=== PATIENT | male | born 1950 | race Two or more races ===

== ENCOUNTER 2017-07-10 06:31 | Day surgery (SDC) | payer MEDICARE, BC ==
--- NOTE | 2017-07-06 11:40 | Pre-Procedure Note/Attestation ---
Pre-Procedure Note/Attestation Complete Prior to Procedure Planned Procedure: left Procedure Narrative: 1. CATARACT EXTRACTION WITH PHACO AND PC IOL IMPLANTATION,LEFT EYE. Indications for Procedure Pre-Operative Diagnosis: 1. CATARACT , LEFT EYE. Attestation I attest that I discussed the nature of the procedure; its benefits; risks and complications; and alternatives (and the risks and benefits of such alternatives ), prior to the procedure, with the patient (or the patient's legal associate sales representative). I attest that, if there was a reasonable possibility of needing a blood transfusion, the patient (or the patient's legal associate sales representative) was given the [facility] standardized written summary, pursuant to the Aaron Martin Blood Safety Act ([place] Health and Safety Code # 1645, as amended). I attest that I re-evaluated the patient just prior to the surgery and that there has been no change in the patient's H&P, except as documented below: SONYA DAY Jul 06, 2017 11:40
[~2017-07-10] VITALS: Ht 175.3 cm; Wt 90.7 kg
[2017-07-10] VITALS (10 sets, daily range): BP systolic 118–163; BP diastolic 80–101
[~2017-07-10 06:31] MED LIST: TUMS500 MG ORAL; VITAMIN E1000 UNI4 PO; [UNRECOGNIZED DRUG - OTHER] PO; acetaZOLAMIDE 125mg tab ORAL ONE
[2017-07-10] MEDS ORDERED: DiphenhydrAMINE 50mg/ml Inj ONE (07:05)
--- NOTE | 2017-07-10 07:11 | Anethesia Preoperative Eval ---
Anesthesia Pre-op PMH/ROS General Date of Evaluation: Jul 10, 2017 Anesthesiologist: Santos ASA Score: ASA 2 Mallampati Score Class I : Soft palate, uvula, fauces, pillars visible Class II: Soft palate, uvula, fauces visible Class III: Soft palate, base of uvula visible Class IV: Only hard plate visible Mallampati Classification: Class II Surgeon: Catrachito Diagnosis: Left cataract Surgical Procedure: Left cataract extraction with IOL Anesthesia History: none Family History: no anesthesia problems Allergies: Coded Allergies: No Known Allergies (Unverified , 07/05/17) Medications: see eMAR Past Medical History Cardiovascular: Denies: HTN, CAD, [place], valve dz, arrhythmia, other Pulmonary: Denies: asthma, COPD, PAUL, other Gastrointestinal/Genitourinary: Denies: GERD, CRI, ESRD, other Neurologic/Psychiatric: Denies: dementia, CVA, depression/anxiety, TIA, other Endocrine: Denies: DM, hypothyroidism, steroids, other HEENT: Reports: cataract (L), cataract (R), Denies: glaucoma, [place] (L), [place] (R), other Hematology/Immune: Denies: anemia, DVT, bleeding disorder, other Musculoskeletal/Integumentary: Denies: OA, RA, DJD, DDD, edema, other PSxH Narrative: denies Anesthesia Pre-op Phys. Exam Physician Exam see chart Constitutional: NAD Cardiovascular: RRR Respiratory: CTA Airway Exam Mallampati Score: Class II MO: full ROM: full Teeth: intact Anesthesia Pre-op A/P Labs see chart Studies Pre-op Studies: EKG - sr Risk Assessment & Plan Assessment: ASA II Plan: MAC Status Change Before Surgery: No Pre-Antibiotics Drug: N/A SOFIA ABRAMS M.D. Jul 10, 2017 07:11
[2017-07-10] MEDS ORDERED: LR 1000ml 1,000 ML IVLG SCH (07:12)
--- NOTE | 2017-07-10 07:12 | Immediate Post-Op Evaluation ---
Immediate Post-Op Evalulation Immediate Post-Op Evalulation Procedure: Left cataract extraction with IOL Date of Evaluation: Jul 10, 2017 Time of Evaluation: 08:56 IV Fluids: 300 Blood Products: 0 Estimated Blood Loss: 0 Urinary Output: 0 Blood Pressure Systolic: 163 Blood Pressure Diastolic: 90 Pulse Rate: 79 Respiratory Rate: 16 O2 Sat by Pulse Oximetry: 96 Temperature (Fahrenheit): 98.3 Pain Score (1-10): 0 Nausea: No Vomiting: No Complications 0 Patient Status: awake, reacts, patent, none Hydration Status: adequate Drug: N/A SOFIA ABRAMS M.D. Jul 10, 2017 07:12
--- NOTE | 2017-07-10 07:12 | 48 Hour Post Anesthesia Eval ---
Post Anesthesia Evaluation Procedure: Left cataract extraction with IOL Date of Evaluation: Jul 10, 2017 Airway: patent Nausea: No Vomiting: No If pain is > 6 Comment: 0 Hydration Status: adequate Cardiopulmonary Status: at baseline Mental Status/LOC: patient returned to baseline Post-Anesthesia Complications: 0 Follow-up care needed: ready to discharge SOFIA ABRAMS M.D. Jul 10, 2017 07:12
[2017-07-10] MEDS ORDERED: DiphenhydrAMINE 50mg/ml Inj IVP PRN (07:15)
[2017-07-10] MEDS ORDERED: Ketorolac Tromethamine Opth 5ml Soln ONE (07:19)
[2017-07-10] MEDS ORDERED: Tropicamide 1% Opth 15ml Soln ONE (07:19)
[2017-07-10] MEDS ORDERED: Phenylephrine 10% Opth Soln 5ml ONE (07:19)
[2017-07-10] MEDS ORDERED: Akten 3.5% 1ml Btl ONE (07:19)
[2017-07-10] MEDS ORDERED: Vigamox Opth Soln 3ml ONE (07:19)
[2017-07-10] MEDS: Phenylephrine 10% Opth Soln 5ml LEFT EYE SCH ×3 (07:24→07:37)
[2017-07-10] MEDS: Akten 3.5% 1ml Btl LEFT EYE SCH ×3 (07:24→07:38)
[2017-07-10] MEDS: Vigamox Opth Soln 3ml LEFT EYE SCH ×3 (07:25→07:38)
[2017-07-10] MEDS: Ketorolac Tromethamine Opth 5ml Soln LEFT EYE SCH ×3 (07:25→07:37)
[2017-07-10] MEDS: Tropicamide 1% Opth 15ml Soln LEFT EYE SCH ×3 (07:25→07:37)
[2017-07-10] MEDS ORDERED: focus PO (07:29)
[2017-07-10 07:59] LABS: BASOPHILS % (AUTO) 1.1 % (0.0-2.0); EOSINOPHILS % (AUTO) 4.8 % (0.0-3.0); LYMPHOCYTES % (AUTO) 36.3 % (20.0-45.0); MEAN CORPUSCULAR HEMOGLOBIN 29.2 PG (27.0-31.0); MEAN CORPUSCULAR HGB CONC 34.1 G/DL (32.0-36.0); MEAN CORPUSCULAR VOLUME 85 FL (80-99); MEAN PLATELET VOLUME 6.8 FL (6.5-10.1); MONOCYTES % (AUTO) 7.1 % (1.0-10.0); NEUTROPHILS % (AUTO) 50.7 % (45.0-75.0); PLATELET COUNT 235 K/UL (150-450); RED BLOOD COUNT 5.57 M/UL (4.70-6.10); RED CELL DISTRIBUTION WIDTH 12.2 % (11.6-14.8); WHITE BLOOD COUNT 5.7 K/UL (4.8-10.8)
[2017-07-10] MEDS ORDERED: Sterile Water Irrig 1000ml IRRIG ONE (08:00)
[2017-07-10] MEDS ORDERED: fentaNYL 100 mcg/2 mL IV ONE (08:00)
[2017-07-10] MEDS ORDERED: Lidocaine 1% MPF 10mg/ml 5ml ONE ×2 (08:00→09:03)
[2017-07-10] MEDS ORDERED: NS Irrig 1000ml ONE (08:00)
[2017-07-10] MEDS ORDERED: LR 1000ml ONE (08:00)
[2017-07-10 08:18] LABS: ANION GAP 10 (5-15); CALCIUM 8.8 MG/DL (8.5-10.1); CARBON DIOXIDE 26 MMOL/L (21-32); CHLORIDE 101 MMOL/L (98-107); CREATININE 1.1 MG/DL (0.55-1.30); GLOMERULAR FILTRATION RATE > 60 mL/min (>60); POTASSIUM 4.2 MMOL/L (3.5-5.1); SODIUM 137 MMOL/L (136-145)
[2017-07-10] MEDS ORDERED: Sodium Hyaluronate 10 mg/ml 0.85ml ONE (08:31)
--- NOTE | 2017-07-10 08:57 | Discharge Summary ---
Discharge Summary Discharge Summary Discharge Summary DATE OF ADMISSION: 07/10/2017 DATE OF DISCHARGE: 07/10/2017 REASON FOR HOSPITALIZATION: Cataract, left eye SURGERY PERFORMED: Cataract extraction with phaco and PC IOL implantation, left eye CONDITION IN THE HOSPITAL:The patient tolerated the surgery without complications. DISCHARGE CONDITION: The patient was stable at discharge. DISCHARGE MEDICATIONS: 1. Vigamox eye drops one drop q.i.d, left eye 2. Prednisolone one drop q.i.d, left eye 3. Acular one drop q4h, left eye POSTOPERATIVE ORDERS: The patient has to rest at home. No bending, No lifting, No watching Television tonight. POSTOPERATIVE FOLLOW UP: The patient will be followed in my office tomorrow morning at 7 o'clock. SONYA DAY Jul 10, 2017 08:57
--- NOTE | 2017-07-10 08:59 | Brief Operative Note ---
Immediate Post Operative Note Operative Note Chief Complaint: Blurry vision, difficulty reading and driving, left eye Pre-op Diagnosis: 1. CATARACT , LEFT EYE. Procedure: Cataract extraction with phaco and PC IOL implantation,left eye Post-op Diagnosis: same as pre-op Surgeon: Sonya Winston MD Communications Systems Engineer: None Additional Surgeons: None Anesthesiologist: Dr. Correa Anesthesia: MAC Specimen: none Complications: none Condition: stable Fluids: 500 ml Estimated Blood Loss: none Drains: none Implant(s) used?: Yes - Monofocal PC IOl implanted in the left eye without complication SONYA WINSTON Jul 10, 2017 08:59
[2017-07-10] MEDS ORDERED: Dexamethasone 4mg/ml vial ONE (09:03)
[2017-07-10] MEDS ORDERED: BSS 500ml btl ONE (09:03)
[2017-07-10] MEDS ORDERED: Povidone-Iodine 5% opth solution ONE (09:04)
[2017-07-10] MEDS ORDERED: BSS 15ml BTL ONE (09:04)
[2017-07-10] MEDS ORDERED: EPINEPHrine 1mg/1ml Amp ONE (09:04)
--- NOTE | 2017-07-10 17:30 | Pre-op HX & Phy Repo 2 SIG ---
DATE OF ADMISSION: 07/10/2017 PRESURGICAL INTERNAL MEDICINE HISTORY AND PHYSICAL REASON FOR EVALUATION: I was asked by Dr. Graham Winston to see this 67-year-old male, who is going for elective surgery on the left eye. The patient has a cataract left eye. Please see full ophthalmologic History and Physical by Dr. Graham Winston. The patient was examined. Chart was reviewed. PAST MEDICAL HISTORY/REVIEW OF SYSTEMS: Remarkable for the patient denies history of chest pain, palpitation, or heart attack. No weight loss. No fevers. Denies history of hypertension or stroke. No history of diabetes or thyroid problem. Denies history of GI bleeding, heartburn, or ulcer disease. No hepatitis. No history of renal insufficiency or prostate problem. PAST SURGICAL HISTORY: None. FAMILY HISTORY: Father from heart attack and mother alive. ALLERGIES: Not known. PRESENT MEDICATIONS: Vitamins, , and calcium. SOCIAL HISTORY: Denies history of alcohol use or tobacco use. No street drugs. PHYSICAL EXAMINATION: GENERAL: Alert, well-developed, well-nourished male in his 60s, in no acute distress. VITAL SIGNS: Blood pressure 137/87, temperature 97.7, pulse 66 regular per minute, respirations 14, and O2 saturation 97% on room air. HEENT: Head, normocephalic. Ears, clear. Eyes, full description per Dr. Graham Winston. Mouth, clear and moist. No dentures. SKIN: Warm and dry. No rashes. LYMPHATICS: Lymph nodes are not enlarged. NECK: Supple. No jugular vein distention. Carotids artery +2. Trachea midline. CHEST: No deformity or asymmetry. LUNGS: Clear to auscultation and percussion. No rales or rhonchi. HEART: Sinus rhythm. No ectopy. No murmur. No S3 or S4. ABDOMEN: Soft, benign. No palpable mass. No rebound. EXTREMITIES: No edema. No calf tenderness. No varicose vein. GENITOURINARY TRACT: No CVA tenderness. No dysuria. NEUROLOGIC: No asymmetry. No tremor. LABORATORY AND DIAGNOSTIC DATA: EKG, normal sinus rhythm, 70 beats per minute, normal EKG. Lab work obtained and pending. The patient's did not eat or drink from 6 p.m. yesterday. IMPRESSION: Cataract, left eye. PLAN: Cataract extraction, left eye with intraocular lens implant per Dr. Graham Winston. CONCLUSION: The patient's vital signs stable. The patient is healthy. Did not eat or drink from last night. The patient's condition optimized for surgery. Thank you very much, Dr. Winston, for privilege to participate in the presurgical care of this interesting patient. Maurice Barragan M.D. DR: ANNALISA JOB#: [id number] CC:
--- NOTE | 2017-07-11 06:45 | Operative Note - Dictated ---
DATE OF OPERATION: 07/10/2017 FACILITY: [facility]. SURGEON: Graham Winston M.D. ROPING MACHINE TENDER: None. ANESTHESIOLOGIST: Dr. Graham. ANESTHESIA: Monitored anesthesia care (MAC). PREOPERATIVE DIAGNOSIS: Cataract, left eye. POSTOPERATIVE DIAGNOSIS: Cataract, left eye. SURGERY PERFORMED: Cataract extraction with phacoemulsification and posterior chamber intraocular lens implantation in the left eye. INDICATION FOR SURGERY: This patient is a 67-year-old gentleman with history of radial keratotomy in both eyes about two years ago and now he had developed cataract in both eyes. He is complaining of blurred vision in both eyes. He is a healthy young man. He is taking only one supplement like vitamin B complex, multivitamin, and vitamin D and calcium. On examination of the left eye, there are many radial and circular scars of the radial keratotomy, or RK, many years ago. Anterior chamber is shallow, but is clean and quiet. Pupillary reflexes normal. There is no RAPD. There is 3+ nuclear sclerosis and 2+ cortical cataract. Funduscopy showed normal macula, normal optic disc, and normal periphery retina. To improve vision in the left eye, the cataract has to be removed and posterior chamber intraocular lens has to be implanted. Because the patient had irregular astigmatism we cannot use any toric intraocular lens for this patient. I did explain everything to the patient and also we cannot 03:45 multiple 03:47. I talked to the patient and decided to do cataract surgery in this eye. Then, we have to put 03:57 PRK in the left eye. The patient accepted all my explanation regarding cataract surgery and PRK following cataract surgery. After all these explanation, the patient signed the consent form which is in the chart. INFORMED CONSENT: As I mentioned, the nature of the surgery, risks, benefits, alternatives, and potential complications were explained in detail to the patient. The potential complications including, but not limited to bleeding, infection, posterior capsular rupture, lens subluxation, flat anterior chamber, iris prolapse, uveitis, corneal edema, macular edema, endophthalmitis, retinal detachment, loss of vision, and even loss of the eye were all explained in detail to the patient. The patient voiced understanding and accepted all the complications. There is no alternative for the patient because the patient as I mentioned had irregular astigmatism and cataract. So, we have to remove the cataract and after cataract surgery, we have to do PRK. The patient accepted all the explanation Then, he signed the consent form, which is in the chart. DESCRIPTION OF SURGERY AND FINDINGS: Following that, the patient was taken to the operation room in a stable condition. Lidocaine gel, Akten 3.5% were applied to the conjunctiva of the left eye. IV sedation was given by the anesthesiologist, Dr. Graham. After adequate anesthesia and sedation had been achieved, the left eye was prepped and draped in a sterile fashion for intraocular surgery. Following that, a speculum was placed in the left eye. Following that, using super sharp knife, corneal side port was created on one of the 06:28 between 06:32. A 1% lidocaine without preservative was injected into the anterior chamber. Following that, viscoelastic agent, Healon, was injected into the anterior chamber. Following that, using a 2.8 mm keratome, temporal clear cornea keratotomy was performed. Because when I tried to put the 07:13 the keratotomy wound between 07:21 wound and it did work well. Following that, viscoelastic agent was injected into the anterior chamber again. Following that, 07:35 Blue was injected under the viscoelastic agent to stain the anterior capsule of the lens. Following that, a clear fresh viscoelastic agent, Healon was injected into the anterior chamber again. Under the viscoelastic agent, an anterior capsulotomy was performed in the fashion of capsulorrhexis beautifully. Following that, all viscoelastic agent was removed from the anterior chamber. Following that, with balanced salt solution, hydrodissection and hydrodelineation was performed and the nucleus was freed. Following that, the viscoelastic agent, Healon was injected into the anterior chamber to protect endothelium of the cornea. Following that, using a 08:22 machine in the fashion of horizontal chop, the nucleus was removed in toto. Following that, using irrigation aspiration unit, cortical material was removed from the capsular bag and the capsular bag was polished. Following that, the capsular bag was filled with viscoelastic agent, Healon. Following that, a +24 diopter 08:43 foldable PC IOL with serial number #[id number] was injected into the capsular bag. Using a Sinskey hook, the lens was manipulated within the proper position. Following that, the viscoelastic agent was removed from the anterior and posterior part of the lens and the anterior chamber was filled with balanced salt solution. Following that, the wound was hydrated with balanced salt solution and the wound was checked for leakage and there was no leakage. Following that, Vigamox eye drops were applied to the conjunctiva of the left eye. The patient tolerated the surgery without complications. The eye was patched with a clear sterile fenestrated shield. Following that, the patient was transferred to the recovery room. In the recovery room, 125 mg Diamox was given by mouth stat. Postoperative orders and directions were given to the patient. The patient will be discharged home upon stabilization. The patient will be followed in my office tomorrow morning at 10 o'clock. Graham Winston M.D. DR: Xochilt JOB#: [id number] CC:
--- NOTE | 2017-07-23 14:01 | Cardiology Report ---
APPROVED REPORT EKG Measurement Heart [id number] Normal sinus rhythm Normal ECG
== END 2017-07-10 11:15 | disposition home or self-care (01) ==
LOC: SUR 06:31
DX: H26.9 Unspecified cataract (principal)
CPT/HCPCS: 36415; 66984; 80048; 85025; 93005; J0171; J1100; J1200; J2405; J3010; J7120; V2632; 94003; 94150

== ENCOUNTER 2017-08-21 06:41 | Day surgery (SDC) | payer MEDICARE, BC ==
--- NOTE | 2017-08-17 11:48 | Pre-Procedure Note/Attestation ---
Pre-Procedure Note/Attestation Complete Prior to Procedure Planned Procedure: right Procedure Narrative: 1. CATARACT EXTRACTION WITH PHACO AND PC IOL IMPLANTATION, RIGHT EYE. Indications for Procedure Pre-Operative Diagnosis: 1. CATARACT , RIGHT EYE Attestation I attest that I discussed the nature of the procedure; its benefits; risks and complications; and alternatives (and the risks and benefits of such alternatives ), prior to the procedure, with the patient (or the patient's legal representative phlebotomy services). I attest that, if there was a reasonable possibility of needing a blood transfusion, the patient (or the patient's legal representative phlebotomy services) was given the [place] [facility] standardized written summary, pursuant to the Aaron Lankin Blood Safety Act ([place] Health and Safety Code # 1645, as amended). I attest that I re-evaluated the patient just prior to the surgery and that there has been no change in the patient's H&P, except as documented below: SONYA DAY Aug 17, 2017 11:48
[2017-08-21] VITALS (10 sets, daily range): BP systolic 123–144; BP diastolic 74–95
[~2017-08-21] VITALS: Ht 177.8 cm; Wt 90.7 kg
[~2017-08-21 06:41] MED LIST changes: +Akten 3.5% 1ml Btl ONE; +Ketorolac Tromethamine Opth 5ml Soln ONE; +Phenylephrine 10% Opth Soln 5ml ONE; +Tropicamide 1% Opth 15ml Soln ONE; +Vigamox Opth Soln 3ml ONE; +focus PO
[2017-08-21] MEDS: Ketorolac Tromethamine Opth 5ml Soln RIGHT EYE SCH ×3 (07:07→07:27)
[2017-08-21] MEDS: Tropicamide 1% Opth 15ml Soln RIGHT EYE SCH ×3 (07:08→07:27)
[2017-08-21] MEDS: Akten 3.5% 1ml Btl RIGHT EYE SCH ×3 (07:08→07:27)
[2017-08-21] MEDS: Phenylephrine 10% Opth Soln 5ml RIGHT EYE SCH ×3 (07:08→07:28)
[2017-08-21] MEDS: Vigamox Opth Soln 3ml RIGHT EYE SCH ×3 (07:08→07:28)
[2017-08-21] MEDS ORDERED: BSS 500ml btl ONE (07:13)
[2017-08-21] MEDS ORDERED: Sodium Hyaluronate 10 mg/ml 0.85ml ONE ×2 (07:13→08:34)
[2017-08-21] MEDS ORDERED: BSS 15ml BTL ONE (07:13)
[2017-08-21] MEDS ORDERED: EPINEPHrine 1mg/1ml Amp ONE (07:13)
[2017-08-21] MEDS ORDERED: Dexamethasone 4mg/ml vial ONE (07:13)
[2017-08-21 07:35] LABS: BASOPHILS % (AUTO) 1.4 % (0.0-2.0); EOSINOPHILS % (AUTO) 5.2 % (0.0-3.0); LYMPHOCYTES % (AUTO) 34.4 % (20.0-45.0); MEAN CORPUSCULAR HEMOGLOBIN 28.8 PG (27.0-31.0); MEAN CORPUSCULAR HGB CONC 33.4 G/DL (32.0-36.0); MEAN CORPUSCULAR VOLUME 86 FL (80-99); MONOCYTES % (AUTO) 8.2 % (1.0-10.0); NEUTROPHILS % (AUTO) 50.8 % (45.0-75.0); PLATELET COUNT 225 K/UL (150-450); RED BLOOD COUNT 5.45 M/UL (4.70-6.10); RED CELL DISTRIBUTION WIDTH 12.2 % (11.6-14.8); WHITE BLOOD COUNT 5.1 K/UL (4.8-10.8)
[2017-08-21 07:45] LABS: ANION GAP 8 mmol/L (5-15); CALCIUM 8.8 MG/DL (8.5-10.1); CARBON DIOXIDE 26 MMOL/L (21-32); CHLORIDE 103 MMOL/L (98-107); GLOMERULAR FILTRATION RATE > 60 mL/min (>60); SODIUM 136 MMOL/L (136-145)
[2017-08-21] MEDS ORDERED: fentaNYL 100 mcg/2 mL IV ONE (08:00)
[2017-08-21] MEDS ORDERED: Midazolam 2mg/2ml Inj ONE (08:00)
[2017-08-21] MEDS ORDERED: Propofol 200mg/20ml IV ONE (08:00)
[2017-08-21] MEDS ORDERED: LR 1000ml ONE (08:00)
[2017-08-21] MEDS ORDERED: Povidone-Iodine 5% opth solution ONE (08:12)
[2017-08-21] MEDS ORDERED: LR 1000ml 1,000 ML IVLG SCH (08:37)
--- NOTE | 2017-08-21 08:37 | Anethesia Preoperative Eval ---
Anesthesia Pre-op PMH/ROS General Date of Evaluation: Aug 21, 2017 Time of Evaluation: 08:07 Anesthesiologist: Stephenie ASA Score: ASA 2 Mallampati Score Class I : Soft palate, uvula, fauces, pillars visible Class II: Soft palate, uvula, fauces visible Class III: Soft palate, base of uvula visible Class IV: Only hard plate visible Mallampati Classification: Class II Surgeon: Catrachito Diagnosis: R eye cataract Surgical Procedure: R eye cataract extraction Anesthesia History: none Family History: no anesthesia problems Allergies: Coded Allergies: No Known Allergies (Unverified , 08/21/17) Medications: see eMAR Past Medical History Cardiovascular: Reports: HTN - b[place], Denies: CAD, [place], valve dz, arrhythmia, other Pulmonary: Denies: asthma, COPD, PAUL, other Gastrointestinal/Genitourinary: Reports: GERD - mild, Denies: CRI, ESRD, other Neurologic/Psychiatric: Denies: dementia, CVA, depression/anxiety, TIA, other Endocrine: Reports: DM - on todays blood work BS elevated needs H1C Hb, Denies: hypothyroidism, steroids, other HEENT: Reports: cataract (L), cataract (R), Denies: glaucoma, [place] (L), [place] (R), other Hematology/Immune: Denies: anemia, DVT, bleeding disorder, other Musculoskeletal/Integumentary: Denies: OA, RA, DJD, DDD, edema, other PMH Narrative: as above PSxH Narrative: L eye cataract Anesthesia Pre-op Phys. Exam Physician Exam Last Vital Signs Date Time Temp Pulse Resp B/P (MAP) Pulse Ox O2 Delivery O2 Flow Rate FiO2 08/21/17 07:19 97.0 72 18 136/84 97 Room Air Constitutional: NAD Neurologic: CN 2-12 intact Cardiovascular: RRR, no M/R/G Respiratory: CTA Gastrointestinal: S/NT/ND Airway Exam Mallampati Score: Class II MO: full Neck: short ROM: full Teeth: intact Dentures: no upper, no lower Anesthesia Pre-op A/P Labs Hematology Test 08/21/17 07:25 White Blood Count 5.1 K/UL (4.8-10.8) Red Blood Count 5.45 M/UL (4.70-6.10) Hemoglobin 15.7 G/DL (14.2-18.0) Hematocrit 47.1 % (42.0-52.0) Mean Corpuscular Volume 86 FL (80-99) Mean Corpuscular Hemoglobin 28.8 PG (27.0-31.0) Mean Corpuscular Hemoglobin Concent 33.4 G/DL (32.0-36.0) Red Cell Distribution Width 12.2 % (11.6-14.8) Platelet Count 225 K/UL (150-450) Mean Platelet Volume 7.0 FL (6.5-10.1) Neutrophils (%) (Auto) 50.8 % (45.0-75.0) Lymphocytes (%) (Auto) 34.4 % (20.0-45.0) Monocytes (%) (Auto) 8.2 % (1.0-10.0) Eosinophils (%) (Auto) 5.2 % (0.0-3.0) H Basophils (%) (Auto) 1.4 % (0.0-2.0) Chemistry Test 08/21/17 07:25 Sodium Level 136 MMOL/L (136-145) Potassium Level 4.0 MMOL/L (3.5-5.1) Chloride Level 103 MMOL/L (98-107) Carbon Dioxide Level 26 MMOL/L (21-32) Anion Gap 8 mmol/L (5-15) Blood Urea Nitrogen 17 mg/dL (7-18) Creatinine 1.0 MG/DL (0.55-1.30) Estimat Glomerular Filtration Rate > 60 mL/min (>60) Glucose Level 147 MG/DL (74-106) H Calcium Level 8.8 MG/DL (8.5-10.1) Studies Pre-op Studies: EKG - NSR Risk Assessment & Plan Assessment: ASA 2 Plan: MAC Status Change Before Surgery: TASIA Ambriz M.D. Aug 21, 2017 08:37
[2017-08-21] MEDS ORDERED: fentaNYL 100 mcg/2 mL IV PRN (08:45)
[2017-08-21] MEDS ORDERED: DiphenhydrAMINE 50mg/ml Inj IVP PRN (08:45)
--- NOTE | 2017-08-21 09:15 | Discharge Summary ---
Discharge Summary Discharge Summary Discharge Summary DATE OF ADMISSION: 08/21/2017 DATE OF DISCHARGE: 08/21/2017 REASON FOR HOSPITALIZATION: cataract right eye 2- Posterior synechia SURGERY PERFORMED: 1- Posterior synechiotomy 2- Cataract extraction, right eye CONDITION IN THE HOSPITAL:The patient tolerated the surgery without complications. DISCHARGE CONDITION: The patient was stable at discharge. DISCHARGE MEDICATIONS: 1. Vigamox eye drops one drop q.i.d, OD 2. Prednisolone one drop q.i.d, OD 3. Acular one drop q4h, right eye POSTOPERATIVE ORDERS: The patient has to rest at home. No bending, No lifting, No watching Television tonight. POSTOPERATIVE FOLLOW UP: The patient will be followed in my office tomorrow morning at 7 o'clock. SONYA DAY Aug 21, 2017 09:15
--- NOTE | 2017-08-21 09:20 | Immediate Post-Op Evaluation ---
Immediate Post-Op Evalulation Immediate Post-Op Evalulation Procedure: R eye cataract extraction with IOL Date of Evaluation: Aug 21, 2017 Time of Evaluation: 09:19 IV Fluids: 400 Blood Products: none Estimated Blood Loss: none Urinary Output: none Blood Pressure Systolic: 128 Blood Pressure Diastolic: 92 Pulse Rate: 69 Respiratory Rate: 20 O2 Sat by Pulse Oximetry: 97 Temperature (Fahrenheit): 97.6 Pain Score (1-10): 1 Nausea: No Vomiting: No Complications none Patient Status: awake, patent, none Hydration Status: adequate TASIA AGUILERA M.D. Aug 21, 2017 09:20
--- NOTE | 2017-08-21 09:20 | Brief Operative Note ---
Immediate Post Operative Note Operative Note Chief Complaint: Blurry vision difficulty driving and reading, right eye Pre-op Diagnosis: 1. CATARACT , RIGHT EYE 2- Posterior synechia, right eye Procedure: 1- Posterior synechiotomy, right eye 2- Cataract extraction with phaco and PC IOL implantation, right eye Post-op Diagnosis: same as pre-op plus - psterior synchia, right eye Surgeon: Sonya Winston MD. Rn Neurosurgical: None Additional Surgeons: None Anesthesiologist: Dr. Casiano Anesthesia: MAC Specimen: none Complications: none Condition: stable Fluids: 500 ml Estimated Blood Loss: none Drains: none Implant(s) used?: Yes - Monofocal PC IOL implanted in the right eye without complication SONYA WINSTON Aug 21, 2017 09:20
--- NOTE | 2017-08-21 14:25 | 48 Hour Post Anesthesia Eval ---
Post Anesthesia Evaluation Procedure: R eye cataract extraction with IOL Date of Evaluation: Aug 21, 2017 Time of Evaluation: 12:20 Blood Pressure Systolic: 128 0: 74 Pulse Rate: 76 Respiratory Rate: 20 Temperature (Fahrenheit): 97.5 O2 Sat by Pulse Oximetry: 99 Airway: patent Nausea: No Vomiting: No Pain Intensity: 2 Hydration Status: adequate Cardiopulmonary Status: stable Mental Status/LOC: patient returned to baseline Follow-up Care/Observations: n/a Post-Anesthesia Complications: none Follow-up care needed: ready to discharge TASIA AGUILERA M.D. Aug 21, 2017 14:25
--- NOTE | 2017-08-21 15:00 | Pre-op HX & Phy Repo 2 SIG ---
DATE OF ADMISSION: 08/21/2017 PRESURGICAL INTERNAL MEDICINE HISTORY AND PHYSICAL REASON FOR EVALUATION: I was asked by Dr. Graham Winston to see this 67-year-old male, who is going for elective surgery on the right eye. The patient has a cataract right eye. Please see full Ophthalmology History and Physical by Dr. Graham Winston. The patient was evaluated. Chart was reviewed. PAST MEDICAL HISTORY/REVIEW OF SYSTEMS: The patient denies history of hypertension, history of heart attack, chest pain, or palpitation. Denies history of respiratory problem, asthma, or bronchitis. No history of diabetes or thyroid problem. No history of GI bleeding, ulcer disease, heartburn or hepatitis. No history of renal insufficiency or prostate problem. No history of anemia. No weight loss or fevers. PAST SURGICAL HISTORY: Remarkable for cataract surgery on the left eye one months ago. ALLERGIES: Not known. CURRENT MEDICATIONS: Multivitamins. HABITS: Denies history of smoke or alcohol habits. No street drugs. FAMILY HISTORY: Father passed, natural causes. Mother alive. PHYSICAL EXAMINATION: GENERAL: Alert, well-developed, well-nourished male in his 60s, no acute distress. VITAL SIGNS: Blood pressure 136/64, temperature 97.2, respirations 20, O2 saturation 97%, heart rate 72 and regular. SKIN: Clear and warm. No rashes. LYMPHATICS: Lymph nodes not enlarged. HEENT: Head, normocephalic. Ears, clear. Eyes, full description per Dr. Graham Michelle. Mouth, clear and moist. No dentures. NECK: Supple. No jugular vein distention. Thyroid gland not enlarged. Carotids artery +2. CHEST: No deformity or asymmetry. LUNGS: Clear. No rales or rhonchi. HEART: Sinus rhythm. No ectopy. No murmur. No S3, S4. ABDOMEN: Soft, benign. No palpable mass. No rebound. EXTREMITIES: No peripheral edema. No varicose veins. No calf tenderness. GENITOURINARY TRACT: Denies dysuria. CVA nontender. NERVOUS SYSTEM: No tremor. No nystagmus. IMAGING: ECG done July 10, 2017, normal sinus rhythm at 70 per minute. Normal ECG. LABORATORY DATA: Pending. IMPRESSION: Cataract, right eye. PLAN: Cataract extraction, right eye with intraocular lens implant per Dr. Graham Winston. CONCLUSION: The patient's vital signs stable. EKG is normal. The patient did not eat or drink from 9 p.m. yesterday. The patient's condition optimized for surgery. Thank you very much, Dr. Winston, for privilege to participate presurgical care of this interesting patient. Maurice Barragan M.D. DR: ANNALISA JOB#: [id number] CC:
--- NOTE | 2017-08-22 | Operative Note - Dictated ---
DATE OF OPERATION: 08/21/2017 FACILITY: [facility]. SURGEON: Graham Winston M.D. VOCATIONAL INSTRUCTOR: None. ANESTHESIOLOGIST: Arturo Casiano M.D. ANESTHESIA: Monitored anesthesia care (MAC). PREOPERATIVE DIAGNOSIS: Cataract, right eye. POSTOPERATIVE DIAGNOSES: 1. Cataract, right eye. 2. Posterior synechiae. SURGERY PERFORMED: 1. Posterior synechiotomy, right eye. 2. Cataract extraction with phacoemulsification and posterior chamber intraocular lens implantation in the right eye. INDICATION FOR SURGERY: The patient is a 67-year-old gentleman with history of radial keratotomy in both eyes about 20 years ago and now, he has developed cataract in both eyes. He has had cataract surgery in the left eye one month ago and he is happy with the result. Now, he is complaining of blurry vision in the right eye. He is a healthy young man. He is taking only vitamin supplements like vitamin B complex, multivitamins, and vitamin D with calcium. On examination of the right eye, there are many radial and circular scars of the radial keratotomy on the cornea. He has had RK many years ago. Anterior chamber is shallow, but it is clean and quiet. Pupillary reflex is normal, but there is some posterior synechia anterior part of the lens. There is no RAPD. There is 3+ nuclear sclerosis and 2+ cortical cataract in the right eye. Funduscopy showed normal macula, normal optic disc, and normal periphery of retina. To improve his vision in the right eye, the cataract has to be removed and posterior chamber intraocular lens has to be implanted. Because the patient had irregular astigmatism, we cannot use any toric or multifocal lenses in this eye. I talked to the patient and decided to do cataract surgery in his eye. Then, afterwards, he might need PRK in both eyes. The patient accepted all my explanation regarding cataract surgery and PRK following cataract surgery. After all this explanation, the patient signed the consent form, which is in the chart. INFORMED CONSENT: As I mentioned, the nature of the surgery, risks, benefits, alternatives, and potential complications were explained in detail to the patient. The potential complications including, but not limited to bleeding, infection, posterior capsular rupture, lens subluxation, flat anterior chamber, iris prolapse, uveitis, corneal edema, macular edema, endophthalmitis, retinal detachment, loss of vision, and the loss of the eye were all explained in detail to the patient. The patient voiced understanding and accepted all the complications. There is no alternative for the patient because the patient, as I mentioned, had irregular astigmatism and cataract. So, we have to remove the cataract and after the cataract surgery, we have to do PRK in this eye. The patient accepted all the explanation. Then, he signed a consent form, which is in the chart. DESCRIPTION OF SURGERY AND FINDINGS: Following that, the patient was taken to the operation room in a stable condition. Lidocaine gel Akten 3.5% was applied to the conjunctiva of the right eye. IV sedation was given by the anesthesiologist, Dr. Casiano. After adequate anesthesia and sedation had been achieved, the right eye was prepped and draped in sterile fashion for intraocular surgery. Following that, a speculum was placed in the right eye. Following that, using a Super Sharp knife, a clear corneal side port was created. Following that, 1% lidocaine without preservative (MPR) was injected into the anterior chamber. Viscoelastic agent, Healon, was injected into the anterior chamber. Following that, using the 2.8 mm keratome, a clear corneal temporal keratotomy was performed. Following that, Vision Blue was injected under the viscoelastic agent to stain the anterior capsule of the lens. Following that, clear new viscoelastic agent was injected into the anterior chamber. The anterior capsulotomy in the fashion of capsulorrhexis was performed beautifully under the viscoelastic agent. Following that, all viscoelastic agent was removed from the anterior chamber. Following that, using balanced salt solution, hydrodissection and hydrodelineation was performed and the nucleus was freed. Following that, clear, new, fresh viscoelastic agent, Healon was injected into the anterior chamber to protect the endothelium of the cornea. Following that, using the phacoemulsification machine in the fashion of horizontal chop, the nucleus was removed in toto. Following that, using irrigation-aspiration unit, the cortical material was removed from the capsular bag and the capsular bag was polished. Following that, the capsular bag was filled with viscoelastic agent, Healon. Following that, a +24 diopter ZCB00 foldable PCIOL with serial number [id number] was injected into the capsular bag. Using a Sinskey hook, the lens was manipulated and put in the proper position. Following that, the viscoelastic agent was removed from the anterior posterior part of the lens. Following that, the anterior chamber was filled with balanced salt solution. Following that, because the wound was enlarged into the radial keratotomy, with 10-0 nylon, three sutures were placed to the wound to stop leakage of the balanced salt solution. Following that, the sutures were cleaned and buried into the corneal tissue. Following that, the wound was checked for leakage, there was no leakage. Vigamox eye drops were applied to the conjunctiva of the right eye. The patient tolerated the surgery without complications. At the end of surgery, the eye was patched with a clear sterile fenestrated shield. Following that, the patient was transferred to the recovery room. In the recovery room, 125 mg Diamox was given by mouth stat. Postoperative orders and directions were given to the patient. The patient will be discharged home upon stabilization. The patient will be followed in my office tomorrow morning at 9:30 a.m. Graham Winston M.D. DR: Av JOB#: [id number] CC:
== END 2017-08-21 10:30 | disposition home or self-care (01) ==
LOC: SUR 06:41
DX: H25.11 Age-related nuclear cataract, right eye (principal); H25.011 Cortical age-related cataract, right eye; H21.541 Posterior synechiae (iris), right eye; I10 Essential (primary) hypertension; K21.9 Gastro-esophageal reflux disease without esophagitis; E11.9 Type 2 diabetes mellitus without complications
CPT/HCPCS: 36415; 65875; 66984; 80048; 82962; 85025; J0171; J1100; J2250; J2704; J3010; J7120; V2632; 94003; 94150